=== PATIENT | male | born 1985 | race Caucasian/White ===

== ENCOUNTER 2018-01-05 21:11 | Emergency (ER) | payer MEDICAID, SELFPAY ==
[2018-01-05 21:12] VITALS: BP 114/71; PULSE 82; RESP 16; TEMP 37.1; O2SAT 96; BMI 21.4
--- NOTE | 2018-01-05 22:15 | RAD_ITS ---
STUDY: X-RAY - RIGHT SHOULDER REASON FOR EXAM: Male, 32 years old. Patient fell down stairs this morning. TECHNIQUE: 4 view(s) of the shoulder. COMPARISON: None. FINDINGS: Normal glenohumeral articulation. Normal acromioclavicular joint. Normal acromion. Normal humeral head and visualized proximal humerus. The soft tissue structures are unremarkable. Normal visualized pulmonary apex. RAD/Shoulder min 2 Views IMPRESSION: Normal x-ray examination of the shoulder. Electronically Signed: Aidan Lopez MD at 23:09 EDT Tel , Service support ,
--- NOTE | 2018-01-05 22:15 | RAD_ITS ---
STUDY: X-RAY - CERVICAL SPINE REASON FOR EXAM: Male, 32 years old. Patient fell down stairs this morning. TECHNIQUE: 3 view(s) of the cervical spine were obtained. COMPARISON: None FINDINGS: Normal anterior atlantoaxial articulation. Normal odontoid process. There is reversal of the normal cervical lordosis. Normal vertebral bodies and endplates. C7 vertebra is not well-seen on the lateral view. Normal disc space heights. Normal visualized intervertebral neuroforamina. There is mild prominence of the posterior nasopharynx. RAD/Cerv Spine 2 or 3 Views IMPRESSION: Reversal of the normal cervical lordosis which could be due to muscle spasm. C7 vertebra is not well-seen on the lateral view. No demonstrated acute fracture. If symptoms persist, CT scan or MRI of the cervical spine are recommended. Prominence of the posterior nasopharynx. Electronically Signed: Aidan Lopez MD at 23:13 EDT Tel , Service support ,
--- NOTE | 2018-01-05 22:15 | RAD_ITS ---
STUDY: X-RAY - THORACIC SPINE REASON FOR EXAM: Male, 32 years old. Patient fell down stairs this morning. TECHNIQUE: 3 view(s) of the thoracic spine were obtained. COMPARISON: None. FINDINGS: There is straightening of the normal thoracic kyphosis. There is mild levoscoliosis. Normal thoracic vertebrae and endplates. Normal disc space heights. The soft tissue structures are unremarkable. RAD/Thoracic Spine 3 Views IMPRESSION: Straightening of the thoracic spine and mild scoliosis which could be due to muscle spasm. No demonstrated acute fracture. Electronically Signed: Aidan Lopez MD at 23:12 EDT Tel , Service support ,
--- NOTE | 2018-01-05 22:15 | RAD_ITS ---
STUDY: X-RAY - LUMBAR SPINE REASON FOR EXAM: Male, 32 years old. Patient fell down stairs this morning. Pain. TECHNIQUE: 3 view(s) of the lumbar spine were obtained. COMPARISON: None FINDINGS: Normal lumbar lordosis. There is no substantial scoliosis. There is a normal alignment of the vertebrae. Normal vertebral bodies and endplates. Normal disc space heights. There is no demonstrated fracture. There is spina bifida at S1. The soft tissue structures are unremarkable. RAD/Lumbar Spine 2 or 3 Views IMPRESSION: No demonstrated acute osseous injury. Electronically Signed: Aidan Lopez MD at 23:09 EDT Tel , Service support ,
--- NOTE | 2018-01-05 22:18 | ED.VISSUMM ---
- ER Visit Summary Date of Service: 01/05/18 Chief Complaint: Back pain History of Present Illness: The patient is a 32 M presenting with back pain. Patient states he fell down a flight of steps this morning. He did not hit his head or lose consciousness. He states he has a history of degenerative disc disease. He complains of diffuse back pain. He tried ibuprofen at home with some relief. He was advised by his counselor to come to the ED for further evaluation. Physical Examination: Vitals are stable. Patient is afebrile. Alert no acute distress. HEENT exam is unremarkable. Neck is mild diffuse tenderness with no stepoff Lungs are clear and equal bilaterally. Heart is regular rate and rhythm. Abdomen is soft nontender nondistended. Back: diffuse tenderness Extremities right posterior shoulder tenderness, AFROM Skin is warm and dry. No focal neurologic deficit. Remainder of exam is unremarkable. Emergency Department Course and Treatment: Patient is given Toradol IM. X-ray of the right shoulder shows no acute process. X-ray of the thoracic and lumbar spine show no fracture. X-ray of the C-spine shows no obvious fracture, C7 is not well visualized. CT cervical spine was obtained and shows no fracture. Patient is given prescription for Naprosyn and Flexeril. He is advised to follow-up with his primary care physician. Advised return to ED if worsening complaints. Disposition: Discharge home Impression: Neck and back pain status post fall This note was generated with [employer] dictation software. It may contain incorrect words, spelling, and punctuation that were not noted in review of the chart prior to signing ED Disposition - Plan for ED Patient: Chief Complaint: Back Referrals: Lexy Aiken MD [Primary Care Provider] -
[2018-01-05] MEDS: Ketorolac 60 MG/2 ML Vial IM (22:44)
--- NOTE | 2018-01-06 00:43 | ED.DEP ---
ED Disposition - Plan for ED Patient: Chief Complaint: Back Instructions: ED Neck Back Pain General Prescriptions: Naproxen [Naprosyn] 500 mg PO BID PRN #20 tablet Cyclobenzaprine [Flexeril] 10 mg PO TID PRN #20 tablet PRN Reason: Muscle Spasm Referrals: Lexy Aiken MD [Primary Care Provider] -
--- NOTE | 2018-01-06 00:55 | NURSING ---
LET THE DOCTOR KNOW HE WAS STILL HAVING PAIN BUT NEVER MENTIONED ANYTHING TO THE DOCTOR WHEN SHE WENT TO TALK WITH HIM.
[2018-01-06 00:56] VITALS: RESP 18
--- NOTE | 2018-01-06 23:31 | CT_ITS ---
STUDY: CT CERVICAL SPINE WITHOUT CONTRAST REASON FOR EXAM: Male, 32 years old. Patient fell down stairs. Neck pain. RADIATION DOSAGE (If Supplied By Facility): CTDIvol = ( 21.53 ) mGy, DLP = ( 496.03 ) mGycm TECHNIQUE: High resolution transaxial imaging was performed without contrast material. Sagittal and coronal images were reconstructed. Individualized dose optimization techniques were used for this CT. COMPARISON: None FINDINGS: Normal craniovertebral junction. Normal anterior atlantoaxial articulation. Normal odontoid process. There is straightening of the normal cervical lordosis. Normal vertebral bodies and posterior osseous elements. C2-3: Normal endplates. Normal disc height and morphology. Normal central canal and intervertebral neuroforamina. C3-4: Normal endplates. Normal disc height and morphology. Normal central canal and intervertebral neuroforamina. C4-5: Normal endplates. Normal disc height and morphology. Normal central canal and intervertebral neuroforamina. C5-6: Normal endplates. Normal disc height and morphology. Normal central canal and intervertebral neuroforamina. C6-7: Normal endplates. Normal disc height and morphology. Normal central canal and intervertebral neuroforamina. C7-T1: Normal endplates. Normal disc height and morphology. Normal central canal and intervertebral neuroforamina. There is no prevertebral soft tissue swelling. There is mild prominence of the visualized posterior nasopharynx. CT/Spine Cervical without Contras IMPRESSION: Straightening of the cervical spine which could be due to muscle spasm. No demonstrated acute fracture or subluxation. If symptoms persist, MRI of the cervical spine is recommended. Electronically Signed: Aidan Lopez MD at 0:39 EDT Tel , Service support ,
== END 2018-01-06 00:56 | disposition home or self-care (01) ==
LOC: ED 23:29
PROVIDERS: Emergency Provider Emergency Medicine; Family Provider Internal Medicine; PCP Internal Medicine
DX: M54.2 Cervicalgia (principal); M54.5 Low back pain; M54.6 Pain in thoracic spine; G89.29 Other chronic pain; Z72.0 Tobacco use; W10.9XXA Fall (on) (from) unspecified stairs and steps, initial encounter; Y93.89 Activity, other specified; Y92.89 Other specified places as the place of occurrence of the external cause; Y99.8 Other external cause status
CPT/HCPCS: 72040; 72072; 72100; 72125; 73030; 96372; 99282

== ENCOUNTER 2018-05-07 19:05 | Emergency (ER) | payer MEDICAID, SELFPAY ==
[2018-05-07 19:07] VITALS: BP 118/74; PULSE 88; RESP 16; TEMP 36.8; O2SAT 98; BMI 23.0
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
--- NOTE | 2018-05-07 19:29 | ED.DEP ---
ED Disposition - Plan for ED Patient: Disposition: Home or Assisted Living Chief Complaint: Dental Instructions: ED Staph Infec Abx Tx Only Prescriptions: Naproxen [Naprosyn] 500 mg PO BID PRN PRN #20 tablet PRN Reason: Pain Clindamycin [Cleocin] 300 mg PO 4X/DAY #80 capsule Referrals: Lexy Aiken MD [Primary Care Provider] -
[2018-05-07] MEDS: Clindamycin HCl 150 MG Capsule 300 MG PO (19:39)
[2018-05-07] MEDS: Naproxen 500 MG Tablet PO (19:39)
--- NOTE | 2018-05-07 19:40 | ED.RN ---
pt given written and verbal d/c instructions and home going prescriptions. pt educated to rinse mouth and not to swallow the drainage. educated to take antibiotics until it is completed. pt verbalizes understanding. ambulates out of ed by self.
== END 2018-05-07 19:42 | disposition home or self-care (01) ==
PROVIDERS: Emergency Provider Emergency Medicine; Family Provider Internal Medicine; PCP Internal Medicine
DX: K13.0 Diseases of lips (principal); R56.9 Unspecified convulsions; F31.9 Bipolar disorder, unspecified; F20.9 Schizophrenia, unspecified; Z72.0 Tobacco use
CPT/HCPCS: 99283

== ENCOUNTER 2018-11-28 15:40 | Emergency (ER) | payer MEDICAID, SELFPAY ==
[2018-11-28 15:42] VITALS: BP 132/74; PULSE 88; RESP 14; TEMP 36.4; O2SAT 96; BMI 19.6
--- NOTE | 2018-11-28 16:09 | ED.DCSUM_ITS ---
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 but nothing recent no fever no cough Physical Examination: [] Vital signs are within normal range afebrile General, no distress resting comfortably HEENT is generally unremarkable The neck is supple no adenopathy Cardiovascular, regular rate and rhythm Lungs, clear bilateral Abdomen, soft nontender Extremities, no clubbing cyanosis or edema, to the left buttock crease region extending around to the anal region he has about a 3 cm area of fullness that appears slightly fluctuant and is slightly tender, there is no other surrounding erythema, there is no signs of foreign years gangrene this is a very discrete localized area his testicular exam and exam unremarkable the abdominal gas exam is as above soft and nontender his backs unremarkable and extremities are normal Neurologic, awake alert answering questions appropriately moving all 4 extremities Test Results: [] Emergency Department Course and Treatment: [] Discussed treatment he agreed to I&D he has no immunocompromising, to provide him some sedation and comfort he was given morphine IM IM Versed 2 mg placed on nonrebreather mask sedation protocol followed, the area was cleansed sterilely local lidocaine and then 11 blade was used to open the most fluctuant area with production of some thick yellow fluid loculations broken down the area was irrigated, and then antibiotic sterile dressing applied, he tolerated procedure well awake and alert during the whole episode reporting almost no pain with all the above Explained all the above to him the concept of an infection below the waistthat could be he will be started on Bactrim DS Naprosyn [place] he will use warm soapy soaks twice a day when he is referred to Dr. Devine and on-call for surgery he will return for change in symptoms Treatment Plan: [] Disposition: [] Home stable Impression: [] 3 cm medial left buttock abscess status post I&D This note was generated with [employer] software. It may contain incorrect words, spelling, and punctuation that were not noted in review of the chart prior to signing ED Disposition - Plan for ED Patient: Referrals: Lexy Aiken MD [Primary Care Provider] -
[2018-11-28] MEDS: morphine 10 MG/ML Syringe SC (16:58)
[2018-11-28] MEDS: Midazolam 5 MG/2.5 ML PO.SYRINGE 2 MG PO (16:58)
--- NOTE | 2018-11-28 17:24 | ED.DEP ---
ED Disposition - Plan for ED Patient: Instructions: ED Sol Anal Abscess IandD Prescriptions: Hydrocodone Bitart/Apap 5-325 [[place] 5MG-325MG] 1 tab PO Q4H PRN PRN 2 Days #7 tab PRN Reason: Pain Naproxen [Naprosyn] 500 mg PO BID PRN #20 tab Smz/Tmp Ds [Bactrim Ds] 1 tab PO BID #14 tab Referrals: Lexy Aiken MD [Primary Care Provider] - Johnna Hyde MD [STAFF PHYSICIAN] -
--- NOTE | 2018-11-28 18:21 | ED.RN ---
CALLED PHARMACY FOR ROCEPHINE
[2018-11-28] MEDS: Smz/Tmp Ds Tablet 1 TABLET PO (18:37)
[2018-11-28] MEDS: Ceftriaxone 1 GM Vial IM (18:37)
[2018-11-28 18:40] VITALS: BP 131/76; PULSE 83; RESP 14; O2SAT 97
== END 2018-11-28 18:41 | disposition home or self-care (01) ==
PROVIDERS: Emergency Provider Emergency Medicine; Family Provider Internal Medicine; PCP Internal Medicine
DX: L02.31 Cutaneous abscess of buttock (principal)
CPT/HCPCS: 10060; 96372; 99283

== ENCOUNTER 2020-01-23 10:20 | Emergency (ER) | payer MEDICAID, SELFPAY ==
[2020-01-23 10:21] VITALS: BP 125/80; PULSE 75; TEMP 36.7; O2SAT 95; BMI 21.1
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
--- NOTE | 2020-01-23 10:30 | EKG12_ITS ---
Test Reason : CP Blood Pressure : / mmHG Vent. Rate : 068 BPM Atrial Rate : 068 BPM P-R Int : 156 ms QRS Dur : 090 ms QT Int : 370 ms P-R-T Axes : 073 058 053 degrees QTc Int : 393 ms Normal sinus rhythm Normal ECG Confirmed by NIKKY WARNER, REENA ([id number]), editorial specialist ALEXANDRA POLANCO ([id number]) on 01/28/2020 2:13:40 PM Referred By: STEPH/LUCRETIA Confirmed By:REENA SHER MD
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
--- NOTE | 2020-01-23 10:31 | ED.RN ---
pt straight back to room. cp
--- NOTE | 2020-01-23 10:41 | ED.RN ---
pt asked in triage if he wanted to file workmans comp. pt refused
[2020-01-23] MEDS: Ipratropium/Albuterol Sulfate 3 ML AMPUL.NEB INHALATION (11:11)
[2020-01-23 11:14] VITALS: PULSE 71; RESP 16
[2020-01-23 11:34] VITALS: BP 114/78; PULSE 79; RESP 18; O2SAT 98
== END 2020-01-23 11:38 | disposition home or self-care (01) ==
PROVIDERS: Emergency Provider Emergency Medicine; PCP Internal Medicine
DX: R07.1 Chest pain on breathing (principal); R06.00 Dyspnea, unspecified; Z77.098 Contact with and (suspected) exposure to other hazardous, chiefly nonmedicinal, chemicals; F17.290 Nicotine dependence, other tobacco product, uncomplicated
CPT/HCPCS: 71046; 93005; 94640; 99283

== ENCOUNTER 2020-06-13 16:33 | Emergency (ER) | payer MEDICAID, SELFPAY ==
[2020-06-13 16:36] VITALS: BP 136/76; PULSE 91; RESP 18; TEMP 36.2; O2SAT 98; BMI 23.1
--- NOTE | 2020-06-13 16:50 | EKG12_ITS ---
Test Reason : SOB Blood Pressure : / mmHG Vent. Rate : 067 BPM Atrial Rate : 067 BPM P-R Int : 158 ms QRS Dur : 094 ms QT Int : 358 ms P-R-T Axes : 074 053 053 degrees QTc Int : 378 ms Normal sinus rhythm Normal ECG Confirmed by SCOTT WARNER, TONE ([id number]), assistant editor KALPESH ROBBINS ([id number]) on 06/16/2020 1:49:56 PM Referred By: DEWAYNE Confirmed By:TONE CHAVEZ MD
--- NOTE | 2020-06-13 16:54 | ED.VISSUMM ---
- ER Visit Summary Date of Service: 06/13/20 Chief Complaint: Wants COVID test History of Present Illness: The patient is a 35 M presenting requesting a COVID test. Patient states that he was exposed to someone who tested positive for COVID at work. Over the past 1 week he has had fever up to 100.4, chills, myalgias. He has lost his sense of smell. He denies cough. Denies diarrhea. He has a mild headache. He complains of chest pain with deep inspiration. No PE/DVT risk factors. He has been taking ibuprofen at home. Denies other complaints. Physical Examination: Vitals are stable. Patient is afebrile. Alert no acute distress. Pulse ox 98% on room air HEENT exam is unremarkable. Neck is supple. Lungs are clear and equal bilaterally. Heart is regular rate and rhythm. Abdomen is soft nontender nondistended. Extremities are unremarkable. Skin is warm and dry. No focal neurologic deficit. Remainder of exam is unremarkable. Emergency Department Course and Treatment: EKG is sinus rhythm rate of 67 with no acute ischemic changes. Troponin is negative. D-dimer negative. COVID is pending. Patient is advised to continue social distancing. Advised follow-up for his COVID results. Advised return to ED for worsening complaints. Disposition: Discharge home Impression: Viral illness This note was generated with [employer] dictation software. It may contain incorrect words, spelling, and punctuation that were not noted in review of the chart prior to signing ED Disposition - Plan for ED Patient: Instructions: ED Upper Resp Infec No Abx Tx Referrals: Lexy Aiken MD [Primary Care Provider] -
--- NOTE | 2020-06-13 17:10 | RAD_ITS ---
STUDY: X-RAY CHEST REASON FOR EXAM: Male, 35 years old. SOB CHEST PAIN TECHNIQUE: Single AP portable view of the chest. COMPARISON: 01/23/2020 FINDINGS: The lungs are clear and expanded. There is no demonstrated pleural abnormality. Normal size heart. Normal mediastinum and divine. Normal visualized pulmonary arteries. Normal visualized aortic arch and descending thoracic aorta. Normal visualized thoracic spine. Normal visualized ribs, clavicles, and shoulders. There is no demonstrated abnormality of the visualized soft tissue structures of the upper abdomen. RAD/Chest 1 View (Portable) IMPRESSION: Normal x-ray examination of the chest. Electronically Signed: David Wasserman MD at 17:35 EDT Tel , Service support ,
[2020-06-13 17:38] LABS: D-Dimer Quantitative (DVT/PE) < 0.27 FEU/ug/m (0.27-0.49)
[2020-06-13 18:41] VITALS: BP 116/80; PULSE 77; RESP 18; O2SAT 97
--- NOTE | 2020-06-13 19:31 | ED.DEP ---
ED Disposition - Plan for ED Patient: Instructions: ED Upper Resp Infec No Abx Tx Referrals: Lexy Aiken MD [Primary Care Provider] -
[2020-06-13 19:45] VITALS: PULSE 75; RESP 18; O2SAT 97
== END 2020-06-13 19:46 | disposition home or self-care (01) ==
LOC: ED 18:22
PROVIDERS: Emergency Provider Emergency Medicine; PCP Internal Medicine
DX: B34.9 Viral infection, unspecified (principal); R07.1 Chest pain on breathing; Z20.828 Contact with and (suspected) exposure to other viral communicable diseases; Z72.0 Tobacco use
CPT/HCPCS: 71045; 84484; 85379; 87635; 93005; 99284; C9803; A4216; U0003

== ENCOUNTER 2020-08-28 12:33 | Emergency (ER) | payer MEDICAID, SELFPAY ==
[2020-08-28 12:35] VITALS: BP 131/83; PULSE 90; RESP 16; TEMP 36.7; O2SAT 97; BMI 21.7
--- NOTE | 2020-08-28 12:59 | ED.VIS.GEN ---
History of Present Illness Chief Complaint: General Illness Narrative: This patient is a 35-year-old male who had a positive Covid exposure at work. One of his coworkers tested positive last week. The next day which was 8 days ago he developed a generalized malaise. He states he just does not feel well. He feels like his body is shutting down. He does complain of some congestion. No fevers. No cough. No shortness of breath. No vomiting. He complains of loose stools but no joie diarrhea. Past Medical History - Allergies and Home Meds Allergies/Adverse Reactions: Allergies No Known Allergies Allergy (Verified 08/28/20 12:37) Primary Care Physician: Lexy Aiken MD [Primary Care Provider] - Past Medical History: None Smoking Status: Current every day smoker Review of Systems All systems negative except as indicated General: Reports: Chills. Denies: Fever ENT: Reports: - - Ingestion. Denies: Rhinorrhea, Sore throat Cardiovascular: Denies: Chest pain Respiratory: Denies: Dyspnea, Cough Gastrointestinal: Reports: Nausea. Denies: Abdominal pain, Vomiting, Diarrhea Musculoskeletal: Denies: Myalgias, Arthralgias Skin: Denies: Rash Neurological: Denies: Headache Physical Exam Vital Signs/Narrative: Vital Signs Temp Pulse Resp BP Pulse Ox 08/28/20 12:35 98.1 F 90 16 131/83 H 97 Inital Vital Signs reviewed: Yes General: Well nourished Head: Normocephalic Eyes: EOMI ENT: Moist mucous membranes Neck: Supple Cardiovascular: Regular rate, Regular rhythm Respiratory: No distress, CTA bilaterally Abdomen: Soft Skin: Normal color Neurological: Alert Psychological: Normal affect Diagnostic/Tx/Re-eval - Medical Decision Making Patient had a positive Covid exposure and is symptomatic. He was advised of the risk of a false negative test and was advised to quarantine. Patient discharged. A Covid test was sent but is currently pending. ED Disposition - Plan for ED Patient: Disposition: Home or Assisted Living Diagnosis: Exposure to COVID-19 virus Instructions: Coronavirus Disease 2019 (COVID-19): Overview, ED Viral Syndrome (Adult) Referrals: Lexy Aiken MD [Primary Care Provider] -
== END 2020-08-28 13:24 | disposition home or self-care (01) ==
LOC: ED 13:07
PROVIDERS: Emergency Provider Emergency Medicine; PCP Internal Medicine
DX: Z20.828 Contact with and (suspected) exposure to other viral communicable diseases (principal); F17.200 Nicotine dependence, unspecified, uncomplicated
CPT/HCPCS: 87426; 99282

== ENCOUNTER 2021-01-08 14:35 | Outpatient (RCR) | payer MEDICAID, SELFPAY | END 2021-03-03 23:59 | LOC: IMMUN 14:35 | PROVIDERS: PCP Internal Medicine; Visit Provider Family Medicine | DX: Z23 Encounter for immunization (principal) | CPT/HCPCS: 0001A; 0002A; 91300 ==

== ENCOUNTER → 2022-08-13 | Outpatient (CLI) | payer MEDICAID, SELFPAY | END | disposition home or self-care (01) | LOC: SL 20:16 | PROVIDERS: PCP Internal Medicine; Visit Provider Internal Medicine | DX: G47.30 Sleep apnea, unspecified (principal) | CPT/HCPCS: 95811 ==

== ENCOUNTER → 2022-10-05 | Outpatient (CLI) | payer MEDICAID, SELFPAY | END | disposition home or self-care (01) | LOC: SL 07:19 | PROVIDERS: PCP Internal Medicine; Visit Provider Internal Medicine | DX: Z00.00 Encounter for general adult medical examination without abnormal findings (principal) ==

== ENCOUNTER 2022-12-15 16:31 | Emergency (ER) | payer MEDICAID, SELFPAY ==
[2022-12-15 16:33] VITALS: BP 143/88; PULSE 89; RESP 18; TEMP 36.6; O2SAT 97
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
--- NOTE | 2022-12-15 18:13 | ED.RN ---
PT LWBS [id number]
== END 2022-12-15 18:15 | disposition left against medical advice (07) ==
LOC: ED 18:15
PROVIDERS: PCP Internal Medicine
DX: Z53.21 Procedure and treatment not carried out due to patient leaving prior to being seen by health care provider (principal)
CPT/HCPCS: 71045; 93005

== ENCOUNTER 2023-03-01 21:41 | Emergency (ER) | payer MEDICAID, SELFPAY ==
[2023-03-01 21:43] VITALS: BP 126/77; PULSE 112; RESP 15; TEMP 37.1; O2SAT 93; BMI 21.4
[2023-03-02 00:47] LABS: Absolute Lymphocyte Count 2.24 X10^3/uL (0.83-4.51); Absolute Neutrophil Count 5.9 X10^3/uL (2.0-7.7); Basophil# 0.08 X10^3/uL; Basophil% 0.9 % (0-1); Eosinophil# 0.17 X10^3/uL; Eosinophils% 1.8 % (0-5); Hematocrit 47.4 % (40-54); Lymphocyte # 2.24 X10^3/ul (0.83-4.51); Lymphocyte % 24.1 % (19-41); Mean Corp Hgb Conc 33.8 g/dL (32-36); Mean Corpuscular Hgb 30.8 pg (27.0-32.0); Mean Corpuscular Volume 91.3 fL (80-94); Mean Platelet Vol. 9.1 fl (6.2-12.0); Monocyte% 9.7 % (0-10); NRBC Flagged by Analyzer 0 % (0-5); Neutrophil # 5.85 X10^3/uL (2.7-7.7); Platelet Count 300 K/mm3 (150-450); RBC Distribution Width CV 12.9 % (11.6-14.6); RBC Distribution Width SD 43.7 fl (35.1-43.9); Red Blood Count 5.19 M/mm3 (4.6-6.2); White Blood Count 9.3 K/mm3 (4.4-11.0)
[2023-03-02 01:00] LABS: Anion Gap 8 (5-15); BUN 13 mg/dL (7-18); BUN/Creat Ratio 15.5 RATIO (10-20); Chloride 107 mmol/L (98-107); Creatinine, Serum 0.84 mg/dL (0.70-1.30); EST Glomerular Filtration Rate 108 mL/min (>60); Est Glom Filt Rate - Afr Amer 131 mL/min (>60); Glucose 94 mg/dL (74-106); Potassium 3.8 mmol/L (3.5-5.1); Sodium Level 139 mmol/L (136-145)
[2023-03-02 01:03] LABS: Amphetamine Urine VISTA NEGATIVE (<1000 ng/mL); Barbiturate Urine VISTA NEGATIVE (< 200 ng/mL); Benzodiazepine Urine VISTA NEGATIVE (< 200 ng/mL); Cocaine Urine VISTA NEGATIVE (< 300 ng/mL); Ecstacy Urine VISTA NEGATIVE (< 500 ng/mL); Methadone Urine VISTA NEGATIVE (< 300 ng/mL); PCP Urine VISTA NEGATIVE (< 25 ng/mL); THC Urine VISTA POSITIVE (< 50 ng/mL); Vista UDS pH Range 4
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
[2023-03-02] MEDS: Ketorolac 15 MG/ML Vial IV (01:58)
[2023-03-02] MEDS: LORazepam 2 MG/ML Syringe 0.5 MG IV (01:58)
[2023-03-02] MEDS: Ondansetron 4 MG/2 ML Vial IV (01:59)
--- NOTE | 2023-03-02 01:59 | ED.RN ---
Medications unable to be scanned due to scanner gun not working properly. Medications verified and wasted with Hernan RN before administration.
[2023-03-02 02:00] LABS: Lipase 45 U/L (13-75)
[2023-03-02 03:56] VITALS: BP 114/76; PULSE 90; RESP 17; O2SAT 96
--- NOTE | 2023-03-02 04:00 | CT_ITS ---
EXAM: CT brain without contrast HISTORY: headache TECHNIQUE: No intravenous contrast. A radiation dose optimization technique was used for this scan. COMPARISON: None. LIMITATIONS: None. BRAIN: Normal berman/white matter differentiation. VENTRICLES: No hydrocephalus. EXTRA-AXIAL SPACES: No acute hemorrhage. CALVARIUM/SKULL BASE: No acute fracture. FACE/SINUSES: Old right-sided facial bone fractures are suspected. Mild mucosal thickening of the sphenoid and bilateral maxillary sinuses. Mild mucosal thickening and/or fluid in the ethmoid air cells bilaterally. SOFT TISSUES: Normal. OTHER: None. CONCLUSION: No acute intracranial abnormality. Mild paranasal sinus disease. Electronically Signed: Carlos A Knight MD at 4:43 EDT , CT/Brain/Head without Contrast IMPRESSION: undefined
--- NOTE | 2023-03-02 04:26 | ED.RN ---
Report given to Clinton ANAYA at [facility].
[2023-03-02] MEDS: Morphine 4 MG/ML Syringe IV (04:32)
[2023-03-02 05:07] VITALS: BP 122/86; PULSE 64; RESP 17; O2SAT 100
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
[2023-03-02 06:29] VITALS: BP 121/74; PULSE 71; RESP 16; O2SAT 98
== END 2023-03-02 06:32 | disposition short-term general hospital (02) ==
PROVIDERS: Emergency Provider Emergency Medicine; PCP Internal Medicine; Visit Provider Emergency Medicine
DX: S12.8XXA Fracture of other parts of neck, initial encounter (principal); R45.851 Suicidal ideations; F17.210 Nicotine dependence, cigarettes, uncomplicated; R45.850 Homicidal ideations; F41.9 Anxiety disorder, unspecified; F32.A Depression, unspecified; R51.9 Headache, unspecified; Y04.8XXA Assault by other bodily force, initial encounter
CPT/HCPCS: 36415; 70450; 70498; 80048; 80307; 82077; 83690; 85025; 87811; 96374; 96375; 99285; Q9967; A4216; J2405

== ENCOUNTER 2023-06-23 18:55 | Emergency (ER) | payer MEDICAID, SELFPAY ==
[2023-06-23 18:59] VITALS: BP 130/87; PULSE 92; RESP 18; TEMP 36.4; O2SAT 97
--- NOTE | 2023-06-23 19:51 | CT_ITS ---
INDICATION: Abdominal pain EXAMINATION: CT Abdomen And Pelvis W/ Contrast Injection TECHNIQUE: Helically acquired images were obtained of the abdomen and pelvis with sagittal and coronal reconstructed images. Individualized dose optimization techniques were used for this CT. IV contrast dosage and agent: 100 mL of Isovue-370. Oral contrast: Contrast is seen in the distal small bowel and proximal colon. COMPARISON: None. FINDINGS: VESSELS: No abdominal aortic aneurysm or dissection. Circumaortic left renal vein. LIVER: Right lobe hepatic cyst. No intrahepatic or extrahepatic biliary duct dilation. GALLBLADDER: No calcified stones. No evidence of cholecystitis. PANCREAS: No focal solid or cystic mass. No evidence of pancreatitis. SPLEEN: Normal. ADRENAL GLANDS: Normal. KIDNEYS AND URETERS: Bilateral simple cysts with no follow-up recommended. No urinary tract stone. No hydronephrosis or hydroureter. No significant asymmetric perinephric stranding. URINARY BLADDER: Unremarkable. BOWEL: Thickened proximal small bowel. No significant mesenteric stranding. No evidence of diverticulosis or diverticulitis. Appendix appears normal. No evidence of bowel obstruction. REPRODUCTIVE ORGANS: No evidence of a pelvic mass. PERITONEUM: No intraabdominal free fluid or free air. LYMPH NODES: No pathologically enlarged mesenteric or retroperitoneal lymph nodes. ABDOMINAL WALL: No abdominal or pelvic wall hernia. BONES: No acute abnormality. LOWER CHEST: 4 mm left lower lobe pulmonary nodule. CT/Abdomen/Pelvis WITH Contrast IMPRESSION: 1. Thickening of proximal small bowel which may represent enteritis. 2. No other evidence of an acute intra-abdominal abnormality. 3. 4 mm left lower lobe pulmonary nodule. Fleischner criteria recommends follow-up with CT in 12 months if the patient has increased risk factors for lung cancer. Otherwise no follow-up is recommended. Electronically Signed: Daniel Freitas DO at 22:23 EDT ,
[2023-06-23] MEDS: 0.9% Normal Saline (1000mL) 1,000 ML 1000 ML IV (20:00)
[2023-06-23] MEDS: Ondansetron 4 MG/2 ML Vial IV (20:00)
[2023-06-23 20:04] LABS: Absolute Lymphocyte Count 2.62 X10^3/uL (0.83-4.51); Absolute Neutrophil Count 7.1 X10^3/uL (2.0-7.7); Basophil# 0.07 X10^3/uL; Basophil% 0.6 % (0-1); Eosinophil# 0.31 X10^3/uL; Eosinophils% 2.9 % (0-5); Hematocrit 49.4 % (40-54); Hemoglobin 16.4 g/dL (13.0-16.5); Lymphocyte # 2.62 X10^3/ul (0.83-4.51); Lymphocyte % 24.2 % (19-41); Mean Corp Hgb Conc 33.2 g/dL (32-36); Mean Corpuscular Hgb 30.3 pg (27.0-32.0); Mean Corpuscular Volume 91.1 fL (80-94); Monocyte# 0.75 X10^3/uL; Monocyte% 6.9 % (0-10); NRBC Flagged by Analyzer 0 % (0-5); Neutrophil # 7.05 X10^3/uL (2.7-7.7); Neutrophil % 65.1 % (47-70); Platelet Count 287 K/mm3 (150-450); RBC Distribution Width CV 12.8 % (11.6-14.6); RBC Distribution Width SD 42.7 fl (35.1-43.9); Red Blood Count 5.42 M/mm3 (4.6-6.2); White Blood Count 10.8 K/mm3 (4.4-11.0)
[2023-06-23 20:20] LABS: AST(SGOT) 10 U/L (15-37); Alanine Aminotransfer ALT/SGPT 16 U/L (16-61); Albumin, Serum 4.1 g/dL (3.2-5.0); Alkaline Phosphatase 89 U/L (45-117); Anion Gap 5 (5-15); BUN 10 mg/dL (7-18); BUN/Creat Ratio 9.3 RATIO (10-20); Calcium,Total 9.5 mg/dL (8.5-10.1); Chloride 106 mmol/L (98-107); Creatinine, Serum 1.07 mg/dL (0.70-1.30); EST Glomerular Filtration Rate 81 mL/min (>60); Est Glom Filt Rate - Afr Amer 98 mL/min (>60); Globulin 4.1 g/dL (2.2-4.2); Glucose 91 mg/dL (74-106); Lipase 45 U/L (13-75); Potassium 3.6 mmol/L (3.5-5.1); Protein, Total 8.2 g/dL (6.4-8.2); Sodium Level 138 mmol/L (136-145)
--- NOTE | 2023-06-23 20:36 | EDS_ITS ---
HPI HPI - GI History of Present Illness Chief Complaint: Abd Pain Informant: patient Abdominal Pain/Flank Pain Onset: Weeks (1) Context: Sudden Onset Timing: Continuous Quality: Aching, Burning and Stabbing Location: Epigastric, RUQ and LUQ Worsened by: Nothing Relieved by: Nothing Nausea/Vomiting/Emesis GI Symptom: Positive for Nausea and Vomiting Quality: Positive for Nonbilious; Negative for Blood streaks, Coffee ground or Hematemesis Diarrhea/Melena/Hematochezia GI Symptom: Positive for Hematochezia; Negative for Diarrhea or Melena Associated Symptoms Associated Symptoms: Negative for Dysuria, Frequency or Hematuria Narrative Narrative: Patient presents with abdominal pain that has been getting worse over the past week. Patient describes his pain as aching, burning, and stabbing. Patient states his pain is over the upper abdomen. Patient states it has been constant for the past week. Patient states nothing makes it better and nothing makes it worse. Patient states that today he noted some bright red blood per rectum. Patient admits to some nausea and vomiting. Patient denies any hematemesis or coffee-ground emesis. Patient admits to some urinary frequency. Patient admits to some chronic back pain. Patient also admits to a headache. Patient denies any fevers or chills. [facility] Medical History (Updated 06/23/23 @ 22:[address] Jordan Skinner DO) Abdominal pain Sleep apnea Home Medications NK 08/28/20 [History Last Taken Unknown] Allergy/AdvReac Type Severity Reaction Status Date / Time No Known Allergies Allergy Verified 06/23/23 18:58 Surgical History (Updated 06/23/23 @ 20:[address] Jordan Skinner DO) Hx of facial fracture repair Social History (Updated 06/23/23 @ 20:[address] Jordan Skinner DO) Smoking Status: Current every day smoker tobacco type: cigarettes alcohol intake: current alcohol intake frequency: a few times a month substance use type: marijuana ROS ROS ED Constitutional Constitutional ED: Denies chills or fever(s) Eyes Eyes: Denies blurry vision or change in vision ENT ENT ED: Denies rhinorrhea or sore throat Cardiovascular Cardiovascular: Reports chest pain; Denies palpitations Respiratory/Chest Respiratory/Chest: Denies cough or dyspnea Gastrointestinal Gastrointestinal: Reports abdominal pain, nausea and vomiting Genitourinary Genitourinary ED: Reports urinary frequency; Denies dysuria or hematuria Musculoskeletal Musculoskeletal: Reports back pain; Denies neck pain Integumentary Denies abscess or rash Neurologic Neurologic: Reports headache(s); Denies weakness Allergic/Immunologic Allergic/Immunologic ED: Denies mouth swelling or urticaria EXAM Physical Exam Const Vital Signs: 06/23/23 18:59 Temperature 97.5 F L Temperature Source Temporal Pulse Rate 92 Respiratory Rate 18 Blood Pressure 130/87 H Blood Pressure Mean 101 Pulse Ox 97 Oxygen Delivery Method Room Air Positive well nourished and well developed General Appearance ED: well developed HEENT Reports moist mucous membranes Neck supple and no JVD Resp normal respiratory effort and clear to auscultation bilaterally Cardio regular rate and regular rhythm GI normal to inspection, nondistended, normoactive bowel sounds GI Narrative: Rectal exam showed good sphincter tone. There is brown stool. There are no masses palpated. Palpation: soft and tender epigastric, LUQ and RUQ; Negative for guarding or rebound tenderness present Extremity normal to inspection General Extremety ED: Negative for edema or tenderness General Extremity: Negative for edema Neuro oriented x3, CN's II-XII intact bilaterally and no sensory deficits noted Sensorium / Orientation: alert Motor Exam: strength 5/5 throughout Psych mental status grossly normal Skin no rashes or lesions noted MDM MDM MDM Narrative Medical decision making narrative: Differential diagnosis includes gastric ulcer, GERD, duodenal ulcer, cholecystitis, cholelithiasis, pancreatitis, pyelonephritis, gastroenteritis, bowel obstruction, perforation, coagulopathy, and urinary tract infection. CBC will be obtained to assess for leukocytosis and anemia. Comprehensive metabolic profile will be obtained to assess for hepatic function, renal function, and electrolyte abnormality. Lipase will be obtained to assess for pancreatitis. Urinalysis will be obtained to assess for urinary tract infection. CT scan of the abdomen and pelvis will be obtained to assess for bowel obstruction and perforation. Stool for occult blood will be obtained to assess for rectal bleeding. Lab Data Attestation: I reviewed the patient's lab results. Lab results narrative: CBC was reviewed and was within normal limits. Comprehensive metabolic profile was reviewed and was within normal limits. Lipase was reviewed and was normal. Urinalysis was reviewed. There is no evidence of urinary tract infection or hematuria. Stool for occult blood was reviewed and was positive. Labs: Laboratory Results - last 24 hr 06/23/23 06/23/23 19:30 20:34 WBC 10.8 RBC 5.42 Hgb 16.4 Hct 49.4 MCV 91.1 MCH 30.3 MCHC 33.2 RDW Std Deviation 42.7 RDW Coeff of Yeison 12.8 Plt Count 287 MPV 10.0 Immature Gran % (Auto) 0.300 Neut % (Auto) 65.1 Lymph % (Auto) 24.2 [place] % (Auto) 6.9 Eos % (Auto) 2.9 Baso % (Auto) 0.6 Absolute Neuts (auto) 7.1 Absolute Lymphs (auto) 2.62 Nucleated RBC % 0 Sodium 138 Potassium 3.6 Chloride 106 Carbon Dioxide 27.0 Anion Gap 5 BUN 10 Creatinine 1.07 Est GFR (MDRD) Af Amer 98 Est GFR (MDRD) Non-Af 81 BUN/Creatinine Ratio 9.3 L Glucose 91 Calcium 9.5 Total Bilirubin 0.30 AST 10 L ALT 16 Alkaline Phosphatase 89 Total Protein 8.2 Albumin 4.1 Globulin 4.1 Albumin/Globulin Ratio 1.0 Lipase 45 Urine Color Yellow Urine Clarity Clear Urine pH 6.0 Ur Specific [place] 1.025 Urine Protein 15 H Urine Glucose (UA) Normal Urine Ketones 5 H Urine Occult Blood 10 H Urine Nitrite Negative Urine Bilirubin Negative Urine Urobilinogen 1 H Ur Leukocyte Esterase Negative Urine RBC 0-5 SEEN Urine WBC 0 SEEN Ur Squamous Epith Cells 0 SEEN Urine Bacteria 0 SEEN Urine Mucus 1+ Radiography Diagnostic Testing: Clinical Impression(s) from Imaging Studies Abdomen/Pelvis CT 06/23/23 19:51 IMPRESSION: 1. Thickening of proximal small bowel which may represent enteritis. 2. No other evidence of an acute intra-abdominal abnormality. 3. 4 mm left lower lobe pulmonary nodule. Fleischner criteria recommends follow-up with CT in 12 months if the patient has increased risk factors for lung cancer. Otherwise no follow-up is recommended. Electronically Signed: Daniel Freitas DO at 22:23 EDT , CT scan of the abdomen pelvis was obtained. There is some thickening of the proximal small bowel which may represent enteritis. There is no other acute abnormality noted. This was interpreted by the radiologist and was also independently reviewed by myself. Treatment and Re-Evaluation :: Patient was given IV fluids and Zofran. Patient was advised of his findings. Since the patient's hemoglobin and hematocrit are completely stable, I do not feel patient requires admission and further work-up for his gastrointestinal bleeding at this time. Patient was instructed to drink plenty of fluids. Patient was given a prescription for Zofran. Patient was instructed to follow- up with his primary care physician in 5 to 7 days. Patient was instructed return if worse in any way. Patient understood and was agreeable with plan. All questions were answered. Discharge Plan Triage Chief Complaint: Abd Pain Other Complaint: Headache ED Provider: Jordan Skinner Dx/Rx/DC Orders Clinical Impression: Rectal bleeding, Abdominal pain Instructions: ED Lower GI Bleeding (Stable), ED Abdominal Pain Unkn Cause Male... Prescriptions: No Action NK Primary Care Provider: Care Physician,No Primary Referrals: Ilan Brown MD [Med Staff - Store Administrative Assistant] - 5-7 Days Care Physician,No Primary [Primary Care Provider] - Disposition Disposition: Home, Self Care
[2023-06-23 20:44] LABS: Bacteria 0 SEEN /hpf (None Seen); Squamous Epithelial Cells - UA 0 SEEN /hpf (0-5); White Blood Cells 0 SEEN /hpf (0-5)
[2023-06-23 20:46] LABS: Color, Urine Yellow (Yellow); Glucose, Dipstick Normal (Normal); Ketone-Dipstick 5 mg/dl (Negative); Leukocyte Esterase-Dipstick Negative /ul (Negative); Nitrite-Dipstick Negative (Negative); Occult Blood-Urine 10 /ul (Negative); Protein-Dipstick 15 mg/dl (Negative); Specific Gravity, Urine 1.025 (1.002-1.030); Urine Bilirubin Dipstick Negative (Negative); Urine Clarity Clear (Clear); Urine Urobilinogen 1 mg/dl (Normal)
[2023-06-23 20:58] LABS: Mucous, Urine 1+ /hpf (<or=2+); Red Blood Cells-Urine 0-5 SEEN /hpf (0-5)
[2023-06-23 21:00] VITALS: RESP 18
== END 2023-06-23 23:02 | disposition home or self-care (01) ==
PROVIDERS: Emergency Provider Emergency Medicine; Visit Provider Emergency Medicine
DX: K62.5 Hemorrhage of anus and rectum (principal); R10.9 Unspecified abdominal pain; M54.9 Dorsalgia, unspecified; F17.210 Nicotine dependence, cigarettes, uncomplicated; G89.29 Other chronic pain; R11.2 Nausea with vomiting, unspecified; R35.0 Frequency of micturition; R07.9 Chest pain, unspecified; R51.9 Headache, unspecified
CPT/HCPCS: 74177; 80053; 81001; 82274; 83690; 85025; 96361; 96374; 99285; J7030; Q9967; A4216; J2405

== ENCOUNTER 2023-07-11 11:19 | Emergency (ER) | payer MEDICAID, SELFPAY ==
[2023-07-11 11:20] VITALS: BP 134/78; PULSE 64; RESP 14; TEMP 36.4; O2SAT 98; BMI 22.3
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
[2023-07-11 12:02] LABS: Absolute Lymphocyte Count 1.56 X10^3/uL (0.83-4.51); Absolute Neutrophil Count 6.5 X10^3/uL (2.0-7.7); Basophil# 0.07 X10^3/uL; Basophil% 0.8 % (0-1); Eosinophil# 0.05 X10^3/uL; Eosinophils% 0.6 % (0-5); Hematocrit 48.7 % (40-54); Hemoglobin 16.4 g/dL (13.0-16.5); Lymphocyte # 1.56 X10^3/ul (0.83-4.51); Lymphocyte % 17.9 % (19-41); Mean Corp Hgb Conc 33.7 g/dL (32-36); Mean Corpuscular Hgb 30.8 pg (27.0-32.0); Mean Corpuscular Volume 91.4 fL (80-94); Mean Platelet Vol. 9.6 fl (6.2-12.0); Monocyte# 0.48 X10^3/uL; Monocyte% 5.5 % (0-10); NRBC Flagged by Analyzer 0 % (0-5); Neutrophil # 6.54 X10^3/uL (2.7-7.7); Neutrophil % 74.9 % (47-70); Platelet Count 287 K/mm3 (150-450); RBC Distribution Width CV 12.7 % (11.6-14.6); RBC Distribution Width SD 43.2 fl (35.1-43.9); Red Blood Count 5.33 M/mm3 (4.6-6.2); White Blood Count 8.7 K/mm3 (4.4-11.0)
[2023-07-11 12:14] LABS: Anion Gap 6 (5-15); BUN 10 mg/dL (7-18); BUN/Creat Ratio 11.6 RATIO (10-20); Calcium,Total 9.2 mg/dL (8.5-10.1); Chloride 109 mmol/L (98-107); Creatinine, Serum 0.86 mg/dL (0.70-1.30); EST Glomerular Filtration Rate 104 mL/min (>60); Est Glom Filt Rate - Afr Amer 126 mL/min (>60); Estimated Creatinine Clearance 120.58 ml/min; Glucose 116 mg/dL (74-106); Potassium 3.7 mmol/L (3.5-5.1); Sodium Level 139 mmol/L (136-145)
[2023-07-11 12:15] LABS: Alcohol, Blood (Medical)-Serum < 3.0 mg/dL
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
[2023-07-11 12:58] LABS: Amphetamine Urine VISTA NEGATIVE (<1000 ng/mL); Barbiturate Urine VISTA NEGATIVE (< 200 ng/mL); Benzodiazepine Urine VISTA NEGATIVE (< 200 ng/mL); Cocaine Urine VISTA NEGATIVE (< 300 ng/mL); Ecstacy Urine VISTA NEGATIVE (< 500 ng/mL); Methadone Urine VISTA NEGATIVE (< 300 ng/mL); PCP Urine VISTA NEGATIVE (< 25 ng/mL); THC Urine VISTA POSITIVE (< 50 ng/mL); Vista UDS pH Range 5
--- NOTE | 2023-07-11 13:15 | CM.ED ---
Social Work SW contacted [facility] and [facility], beds available. SADE faxed referrals. Plan: Referrals pending at [facility] and [facility] Jenna DE JESUS, MIKHAIL
[2023-07-11 14:20] VITALS: BP 134/78; PULSE 64; RESP 14; TEMP 36.9; O2SAT 98
--- NOTE | 2023-07-11 15:23 | CM.ED ---
Social Work Patient has been accepted to [facility] by MD Colon, Discovery unit, N2N [phone]. Requesting pink slip be faxed as well as ETA during N2N. SW updated care team and faxed copy of pink slip to [facility]. SW met with patient and provided update regarding acceptance. Patient voiced understanding and has no questions. Plan: [facility] for inpatient psychiatric hospitalization Jenna Lorenzo MSW, MIKHAIL
--- NOTE | 2023-07-11 16:58 | NURSING ---
NICOL CALLED, ETA 90 MINUTES
[2023-07-11 18:00] VITALS: BP 146/78; PULSE 64; RESP 14; O2SAT 98
--- NOTE | 2023-07-11 18:52 | ED.RN ---
attempted to call report. transferred 3 times finally when speaking with a nurse. was told to call back
--- NOTE | 2023-07-11 19:07 | ED.RN ---
2nd attempt for report called no answer
== END 2023-07-11 19:10 ==
LOC: ED 12:00
PROVIDERS: Emergency Provider Emergency Medicine; Visit Provider Emergency Medicine
DX: R45.851 Suicidal ideations (principal); F20.9 Schizophrenia, unspecified; F31.9 Bipolar disorder, unspecified; R56.9 Unspecified convulsions; F17.210 Nicotine dependence, cigarettes, uncomplicated
CPT/HCPCS: 36415; 80048; 80307; 82077; 85025; 87811; 99285

== ENCOUNTER 2023-12-06 20:29 | Emergency (ER) | payer MEDICAID, SELFPAY ==
[2023-12-06 20:30] VITALS: BP 126/84; PULSE 89; RESP 16; TEMP 36.6; O2SAT 97; BMI 20.9
--- NOTE | 2023-12-06 21:09 | CT_ITS ---
INDICATION: Severe headache, problems with balance EXAMINATION: CT BRAIN - CT Head or Brain W/O Contrast Injection TECHNIQUE: Multiple axial images were obtained of the head without intravenous contrast. A radiation dose optimization technique was used for this scan. IV Contrast dosage and agent: None. RADIATION DOSAGE (If Supplied By Facility): CTDIvol = ( 44.99 ) mGy, DLP = ( 812.98 ) mGycm COMPARISON: No relevant prior comparison study available FINDINGS: BRAIN PARENCHYMA: No intra- or extra-axial hemorrhage. No evidence of acute infarct. No intracranial mass or mass effect. There is preservation of the berman/white matter interface. Posterior fossa structures are unremarkable. No parenchymal abnormality. CSF SPACES: No cerebral volume loss. No hydrocephalus. Basal cisterns are patent. CALVARIUM, SKULL BASE, PARANASAL SINUSES AND MASTOID AIR CELLS: Partially opacified bilateral ethmoid air cells. The mastoid air cells and visualized paranasal sinuses are otherwise well aerated. The calvarium is intact. No discrete lytic or blastic abnormalities. ORBITS: Both globes, extraocular muscles, optic nerves and retrobulbar fat appear unremarkable. CT/Brain/Head without Contrast IMPRESSION: No acute intracranial finding. Electronically Signed: Schuyler Grullon MD at 21:57 EDT ,
[2023-12-06] MEDS: Ondansetron 4 MG/2 ML Vial IV (21:32)
[2023-12-06] MEDS: 0.9% Normal Saline (1000mL) 1,000 ML 1000 ML IV (21:32)
--- NOTE | 2023-12-06 21:40 | RAD_ITS ---
INDICATION: Cough, EXAMINATION/TECHNIQUE: X-RAY - XR Chest 2 Views COMPARISON: No relevant prior comparison study available FINDINGS: LINES/DEVICES: None. LUNGS: The lungs are well expanded. No consolidation, edema or effusion. No pneumothorax. MEDIASTINUM AND CARDIOVASCULAR STRUCTURES: Cardiac silhouette not enlarged. Central airways and mediastinal contour are unremarkable. BONES AND SOFT TISSUES: No acute abnormality. RAD/Chest PA and Lateral IMPRESSION: No acute pulmonary finding. Electronically Signed: Schuyler Grullon MD at 21:58 EDT ,
[2023-12-06 21:43] LABS: Absolute Lymphocyte Count 2.52 X10^3/uL (0.83-4.51); Absolute Neutrophil Count 6.5 X10^3/uL (2.0-7.7); Basophil# 0.09 X10^3/uL; Basophil% 0.9 % (0-1); Eosinophil# 0.26 X10^3/uL; Eosinophils% 2.5 % (0-5); Hematocrit 45.7 % (40-54); Hemoglobin 15.1 g/dL (13.0-16.5); Lymphocyte # 2.52 X10^3/ul (0.83-4.51); Lymphocyte % 24.7 % (19-41); Mean Corpuscular Hgb 30.1 pg (27.0-32.0); Mean Corpuscular Volume 91.2 fL (80-94); Mean Platelet Vol. 9.6 fl (6.2-12.0); Monocyte# 0.82 X10^3/uL; NRBC Flagged by Analyzer 0 % (0-5); Neutrophil # 6.49 X10^3/uL (2.7-7.7); Neutrophil % 63.6 % (47-70); Platelet Count 244 K/mm3 (150-450); RBC Distribution Width CV 13.4 % (11.6-14.6); RBC Distribution Width SD 44.8 fl (35.1-43.9); Red Blood Count 5.01 M/mm3 (4.6-6.2); White Blood Count 10.2 K/mm3 (4.4-11.0)
--- NOTE | 2023-12-06 21:43 | EX.ED.DYSGE1 ---
HPI History of Present Illness Chief Complaint: General Illness Detail of Chief Complaint: Constellation of viral-like symptoms Informant: patient Onset/Context/Timing Onset: Days (Symptoms started 3 days ago.) Context: Sudden Onset Timing: Continuous and Waxes and wanes Quality: Problems with balance, nausea, diarrhea aches Location: Generalized Current Severity: Mild Maximum Severity: Moderate Worsened by: Patient believes is due to exposure to chemicals at work Relieved by: . Nothing Associated Symptoms Associated Symptoms: Lightheadedness, dry mouth Narrative Narrative: Patient is a 38-year-old male. He is a smoker. He complains of frontal headache. He denies double vision, blurred vision loss of vision. Nuys photophobia. Nuys neck pain, stiffness. He does report ringing's ears. This has been a chronic issue. He denies rhinorrhea, does have mild congestion. Denies sore throat. Does have change in voice, hoarse. He does have a slight cough. He is a smoker. Cough is intermittently productive of sputum. He denies pleuritic chest pain. He does complain of abdominal pain that is bilateral and associated with nausea, vomiting diarrhea. Patient denies dysuria, frequency, urgency or hematuria. Patient does report orthostatic lightheadedness. He also reports problems with his balance and coordination. Prior similar symptoms: No Recent Illness/Hospitalization: No PFSH PFSH Medical History Abdominal pain Depression Schizophrenia Sleep apnea Home Medications fluphenazine HCl 5 mg tablet 5 mg PO BID psychosis 12/06/23 [History Last Taken Unknown] hydroxyzine HCl 50 mg tablet 50 mg PO Q6H PRN PRN anxiety 12/06/23 [History Last Taken Unknown] mirtazapine 30 mg tablet 30 mg PO QHS depressive disorder 12/06/23 [History Last Taken Unknown] prazosin 1 mg capsule 1 mg PO QHS 12/06/23 [History Last Taken Unknown] quetiapine 25 mg tablet 50 mg PO QHS 12/06/23 [History Last Taken Unknown] tizanidine 4 mg tablet 4 mg PO Q8H PRN PRN muscle spasm 12/06/23 [History Last Taken Unknown] trazodone 50 mg tablet 50 mg PO QHS PRN PRN insomnia 12/06/23 [History Last Taken Unknown] Allergy/AdvReac Type Severity Reaction Status Date / Time No Known Allergies Allergy Verified 12/06/23 20:32 Surgical History Hx of facial fracture repair Social History Smoking Status: Current every day smoker tobacco type: cigarettes alcohol intake: current alcohol intake frequency: a few times a month substance use type: marijuana ROS ROS ED Constitutional Constitutional ED: Reports sweats; Denies chills, fever(s), subjective or weight loss Eyes Eyes: Denies blurry vision, change in vision or diplopia ENT ENT ED: Reports rhinorrhea and sore throat; Denies ear pain Cardiovascular Cardiovascular: Denies chest pain, orthopnea, palpitations, paroxysmal nocturnal dyspnea or racing heartbeat Respiratory/Chest Respiratory/Chest: Reports cough, dyspnea and sputum; Denies dyspnea on exertion, orthopnea or paroxysmal nocturnal dyspnea Gastrointestinal Gastrointestinal: Reports abdominal pain, diarrhea, nausea and vomiting; Denies constipation or melena Genitourinary Genitourinary ED: Denies dysuria, hematuria or urinary frequency Musculoskeletal Musculoskeletal: Denies arthralgias, back pain, myalgias or neck pain Integumentary Denies rash Neurologic Neurologic: Reports headache(s) and other Details: Problems with balance and coordination as document in the HPI narrative ; Denies paresthesias or weakness Hematologic/Lymphatic Hematologic/Lymphatic: Reports systems reviewed and no addt'l complaints, except as documented EXAM Physical Exam Const Vital Signs: 12/06/23 20:30 12/06/23 21:01 Temperature 97.8 F Temperature Source Temporal Pulse Rate 89 Respiratory Rate 16 Respiratory Effort Normal Short of Breath Respiratory Pattern Normal Blood Pressure 126/84 H Blood Pressure Mean 98 Pulse Ox 97 Oxygen Delivery Method Room Air Positive well nourished and well developed General Appearance ED: well developed and NAD; Negative for cyanotic, diaphoretic or pallor HEENT Reports TM's clear and dry mucous membranes HEENT Narrative: Head is atraumatic and normocephalic. Ears normal. Nares patent with discharge. Posterior pharynx erythema exudate. Negative for trauma or tenderness Tympanic Membrane ED: Yes TM's clear Mouth ED: Yes dry mucous membranes Mouth: dry mucous membranes Eyes PERRL and EOMs intact bilaterally General Eye ED: Negative for pale conjunctiva or scleral icterus Neck no lymphadenopathy, supple and no JVD Chest Wall inspection of chest normal and palpation of chest normal Resp normal respiratory effort and clear to auscultation bilaterally Cardio regular rate, regular rhythm, S1 normal heart sound, S2 normal heart sound and no murmurs GI normal to inspection, nondistended, normoactive bowel sounds, non-distended and no masses; Negative for non-tender or hepatosplenomegaly Inspection: Negative for abdominal distention Auscultation: hypoactive bowel sounds Palpation: tender LUQ and RUQ Back/Spine no CVA tenderness Extremity normal to inspection Extremity Narrative: There is no clubbing or cyanosis. General Extremety ED: Negative for edema or tenderness General Extremity: Negative for edema Neuro oriented x3, CN's II-XII intact bilaterally and no sensory deficits noted Neuro Narrative: There is no dysmetria. Gait is normal. Tandem gait is normal. There is no clonus or Babinski sign. Sensorium / Orientation: alert Motor Exam: strength 5/5 throughout Psych mental status grossly normal Skin no rashes or lesions noted, no wounds and skin turgor normal General Skin Exam: elasticity normal; Negative for jaundice or pallor MDM MDM MDM Narrative Medical decision making narrative: Suspect patient has a viral illness. Do not believe this is due to exposure to fumes. CBC, BMP was obtained. Patient was she with IV fluids because clinically appears dehydrated. Was given Zofran. He requested antidiarrheal meds. Imodium was ordered. History & Record Review Additional record(s) reviewed:: Prior ED visit (Seen for abdominal pain, fever, and on significant symptoms.) and Prior labs Lab Data Attestation: I reviewed the patient's lab results. Lab results narrative: CBC is normal. Basic metabolic panel is unremarkable. Chloride is slightly elevated 110. Labs: Laboratory Results - last 24 hr 12/06/23 21:30 WBC 10.2 RBC 5.01 Hgb 15.1 Hct 45.7 MCV 91.2 MCH 30.1 MCHC 33.0 RDW Std Deviation 44.8 H RDW Coeff of Yeison 13.4 Plt Count 244 MPV 9.6 Immature Gran % (Auto) 0.300 Neut % (Auto) 63.6 Lymph % (Auto) 24.7 [place] % (Auto) 8.0 Eos % (Auto) 2.5 Baso % (Auto) 0.9 Absolute Neuts (auto) 6.5 Absolute Lymphs (auto) 2.52 Nucleated RBC % 0 Sodium 142 Potassium 3.8 Chloride 110 H Carbon Dioxide 28.0 Anion Gap 4 L BUN 9 Creatinine 1.00 Estim Creat Clear Calc 97.37 Est GFR (MDRD) Af Amer 106 Est GFR (MDRD) Non-Af 88 BUN/Creatinine Ratio 9.0 L Glucose 101 Calcium 8.9 Radiography Chest X-Ray - ED: 2 View and Read by ED Physician (Telemetry reviewed interpreted by me at 2146 as negative for acute process. Cardiac silhouette and size normal. Lung parenchyma is normal. Mediastinum is normal. Osseous structures reveal no acute process.) Diagnostic Testing: Clinical Impression(s) from Imaging Studies Brain CT 12/06/23 21:09 IMPRESSION: No acute intracranial finding. Electronically Signed: Schuyler Grullon MD at 21:57 EDT , Chest X-Ray 12/06/23 21:40 IMPRESSION: No acute pulmonary finding. Electronically Signed: Schuyler Grullon MD at 21:58 EDT , Treatment and Re-Evaluation :: Patient's workup is unremarkable. There is no evidence of intracranial pathology. Will discharge home with appropriate home-going instructions. Patient was given excuse for work. Discharge Plan Triage Chief Complaint: General Illness ED Provider: aDe Zamorano Dx/Rx/DC Orders Clinical Impression: Viral cephalgia, Viral syndrome Prescriptions: No Action quetiapine 25 mg tablet 50 mg PO QHS trazodone 50 mg tablet 50 mg PO QHS PRN PRN (Reason: insomnia) tizanidine 4 mg tablet 4 mg PO Q8H PRN PRN (Reason: muscle spasm) prazosin 1 mg capsule 1 mg PO QHS hydroxyzine HCl 50 mg tablet 50 mg PO Q6H PRN PRN (Reason: anxiety) mirtazapine 30 mg tablet 30 mg PO QHS fluphenazine HCl 5 mg tablet 5 mg PO BID Stand Alone Forms: ED Work / School Excuse Primary Care Provider: LEI KINGSLEY Referrals: LEI KINGSLEY [Other] - 1 Week if not improving Disposition Disposition: Home, Self Care
[2023-12-06] MEDS: Loperamide 2 MG Capsule 4 MG PO (21:58)
[2023-12-06 21:59] LABS: Anion Gap 4 (5-15); BUN 9 mg/dL (7-18); Calcium,Total 8.9 mg/dL (8.5-10.1); Chloride 110 mmol/L (98-107); EST Glomerular Filtration Rate 88 mL/min (>60); Est Glom Filt Rate - Afr Amer 106 mL/min (>60); Estimated Creatinine Clearance 97.37 ml/min; Glucose 101 mg/dL (74-106); Potassium 3.8 mmol/L (3.5-5.1); Sodium Level 142 mmol/L (136-145)
[2023-12-06 23:00] VITALS: BP 122/63; PULSE 68; RESP 16; O2SAT 98
[2023-12-06 23:06] VITALS: BP 122/83; PULSE 68; RESP 6; TEMP 36.9; O2SAT 96
== END 2023-12-06 23:07 | disposition home or self-care (01) ==
PROVIDERS: Emergency Provider Emergency Medicine; Visit Provider Emergency Medicine
DX: B34.9 Viral infection, unspecified (principal); F17.210 Nicotine dependence, cigarettes, uncomplicated; R51.9 Headache, unspecified; Z79.899 Other long term (current) drug therapy
CPT/HCPCS: 70450; 71046; 80048; 85025; 87631; 96361; 96374; 99284; J7030; A4216; J2405

== ENCOUNTER 2023-12-08 11:55 | Emergency (ER) | payer MEDICAID, SELFPAY ==
[2023-12-08 11:56] VITALS: BP 129/85; PULSE 102; RESP 16; TEMP 36.3; O2SAT 97; BMI 20.9
== END 2023-12-08 13:35 | disposition left against medical advice (07) ==
LOC: ED 13:42
DX: Z53.21 Procedure and treatment not carried out due to patient leaving prior to being seen by health care provider (principal)

== ENCOUNTER 2024-11-15 14:48 | Emergency (ER) | payer SELFPAY ==
[2024-11-15 14:49] VITALS: BP 125/89; PULSE 83; RESP 16; TEMP 36.2; O2SAT 97; BMI 23.8
[2024-11-15 16:11] LABS: Absolute Lymphocyte Count 3.04 X10^3/uL (0.83-4.51); Absolute Neutrophil Count 7.3 X10^3/uL (2.0-7.7); Basophil# 0.11 X10^3/uL; Basophil% 0.9 % (0-1); Eosinophil# 0.35 X10^3/uL; Hematocrit 45.9 % (40-54); Hemoglobin 15.3 g/dL (13.0-16.5); Lymphocyte # 3.04 X10^3/ul (0.83-4.51); Lymphocyte % 25.7 % (19-41); Mean Corp Hgb Conc 33.3 g/dL (32-36); Mean Corpuscular Hgb 30.4 pg (27.0-32.0); Mean Corpuscular Volume 91.3 fL (80-94); Mean Platelet Vol. 9.6 fl (6.2-12.0); Monocyte% 8.5 % (0-10); NRBC Flagged by Analyzer 0 % (0-5); Neutrophil # 7.28 X10^3/uL (2.7-7.7); Neutrophil % 61.5 % (47-70); Platelet Count 294 K/mm3 (150-450); RBC Distribution Width CV 13.2 % (11.6-14.6); RBC Distribution Width SD 44.7 fl (35.1-43.9); Red Blood Count 5.03 M/mm3 (4.6-6.2); White Blood Count 11.8 K/mm3 (4.4-11.0)
[2024-11-15 16:24] LABS: AST(SGOT) 22 U/L (15-37); Alanine Aminotransfer ALT/SGPT 35 U/L (16-61); Alkaline Phosphatase 103 U/L (45-117); Anion Gap 5 (5-15); BUN 12 mg/dL (7-18); BUN/Creat Ratio 14.2 RATIO (10-20); Calcium,Total 9.1 mg/dL (8.5-10.1); Chloride 111 mmol/L (98-107); Creatinine, Serum 0.85 mg/dL (0.70-1.30); EST Glomerular Filtration Rate 106 mL/min (>60); Est Glom Filt Rate - Afr Amer 128 mL/min (>60); Estimated Creatinine Clearance 125.53 ml/min; Globulin 4.2 g/dL (2.2-4.2); Glucose 85 mg/dL (74-106); Protein, Total 8.2 g/dL (6.4-8.2); Sodium Level 140 mmol/L (136-145)
[2024-11-15 16:57] VITALS: BP 120/90; PULSE 98; RESP 18; O2SAT 97
[2024-11-15 17:02] VITALS: BP 131/91; BP 133/89; BP 134/88; PULSE 72; PULSE 74
--- NOTE | 2024-11-15 17:02 | CT_ITS ---
PROCEDURE: ABDOMEN/PELVIS W IV CONT ONLY REASON FOR EXAM: Bright red blood per rectum; history of hemorrhoids. TECHNIQUE: Abdomen and pelvis CT with intravenous contrast. IV CONTRAST: Not reported. COMPARISON: None. FINDINGS: Lung bases: Clear Liver: Right hepatic lobe subcentimeter hypodense lesion that is too small to characterize but statistically likely benign. Gallbladder: Unremarkable. Spleen: Unremarkable. Pancreas: Unremarkable. Adrenals: Unremarkable. Kidneys: Right kidney simple cyst. Additional bilateral subcentimeter hypodense lesions that are too small to characterize. No hydroureteronephrosis. Bladder: Unremarkable. Reproductive Organs: Prostatic calcifications. Bowel: Unremarkable. Appendix: Normal. Lymph nodes: No suspicious lymph node enlargement. Vasculature: Major vascular structures are unremarkable. Peritoneum / Retroperitoneum: No ascites. No free air. Bones: Degenerative changes of the spine most pronounced at L5-S1. CT/Abdomen/Pelvis W IV Cont ONLY IMPRESSION: No acute abnormalities of the abdomen or pelvis. One or more dose reduction techniques were used (e.g., Automated exposure contr ol, adjustment of the mA and/or kV according to patient size, use of iterative reconstruction technique). Reading Location: [place] [id number]
--- NOTE | 2024-11-15 17:02 | EDS_ITS ---
HPI HPI - GI History of Present Illness Chief Complaint: GI Bleed Narrative Narrative: 39-year-old male past medical history of previous hemorrhoids presents with rectal bleeding that began this afternoon, few hours ago. He states he got home from work, and had a bowel movement which showed blood in the toilet/bright red blood per rectum. He states he has been constipated over the last few days. He states he also had a time where he had a hemorrhoid blowout in his words. Had rectal bleeding previously. States he was seen in the emergency department and was told that should he have continued bleeding that he may need to have gastroenterology see him. He complains of bilateral lower abdominal pain as well. No history of liver disease, denies any other bleeding diathesis. No nausea or vomiting, no fevers or chills or other symptoms. PFSH PFSH Medical History Degenerative disc disease Depression Schizophrenia Sleep apnea Abdominal pain Home Medications ?Medication ?Instructions ?Recorded ?Last Taken ?Type fluphenazine HCl 5 mg tablet 5 mg PO BID psychosis 09/18 Unknown History hydroxyzine HCl 50 mg tablet 50 mg PO Q6H PRN PRN anxi ety 12/06/23 Unknown History mirtazapine 30 mg tablet 30 mg PO QHS depressive diso rder 12/06/23 Unknown History ondansetron 4 mg disintegrating 4 mg PO Q8H PRN PRN Na usea #10 tabs 12/06/23 Unknown Rx tablet prazosin 1 mg capsule 1 mg PO QHS 12/06/23 Unknown History quetiapine 25 mg tablet 50 mg PO QHS 12/06/23 Unknow n History tizanidine 4 mg tablet 4 mg PO Q8H PRN PRN muscle s pasm 12/06/23 Unknown History trazodone 50 mg tablet 50 mg PO QHS PRN PRN insomni a 12/06/23 Unknown History hydrocortisone 2.5 % topical cream 1 applic NM BID #30 grams 11/15/24 Unknown Rx with perineal applicator (Anusol-HC) Allergy/AdvReac Type Severity Reaction Status Date / Time No Known Allergies Allergy Verified 12/08/23 11:56 Surgical History Hx of facial fracture repair Social History Smoking Status: Current every day smoker tobacco type: cigarettes alcohol intake: current alcohol intake frequency: a few times a month substance use type: marijuana ROS ROS ED ROS Narrative Review of systems positive for rectal bleeding. No lightheadedness or dizziness. No chest pain or shortness of breath, no fevers or chills, no nausea or vomiting, denies other symptoms. Does take ibuprofen, last taken approximately 4 days ago. Also takes Tylenol 3 which she took today. EXAM Physical Exam Narrative Exam Narrative: Afebrile. Vital signs noted. Nontoxic-appearing. No skin pallor noted. No scleral icterus. Cardiovascular examination regular rate and rhythm. Lungs clear to auscultation bilaterally. Abdomen is soft with minimal tenderness to p alpation in the bilateral lower quadrants. No guarding or rebound. Positive bowel sounds. Neurological examination is nonfocal and nonlateralizing. Chaperoned rectal examination performed. On the chaperoned rectal examination, there is external hemorrhoid with evidence of excoriation and prior bleeding. Nonthrombosed. Const Vital Signs: 11/15/24 14:49 11/15/24 16:57 11/15/24 17:02 Temperature 97.1 F L Temperature Source Temporal Pulse Rate 83 98 Pulse Rate [Lying] 72 Pulse Rate [Sitting (for 1 minute prior to obtaining)] 74 Respiratory Rate 16 18 Blood Pressure 125/89 H 120/90 H Blood Pressure [Lying] 131/91 H Blood Pressure [Sitting (for 1 minute prior to obtaining)] 134/88 H Blood Pressure [Standing (for 1 minute prior to obtaining)] 133/89 H Blood Pressure Mean 101 100 Blood Pressure Mean [Lying] 104 Blood Pressure Mean [Sitting (for 1 minute prior to obtaining)] 103 Blood Pressure Mean [Standing (for 1 minute prior to obtaining)] 103 Pulse Ox 97 97 Oxygen Delivery Method Room Air Room Air 11/15/24 18:00 Temperature 97.9 F Temperature Source Oral Pulse Rate 77 Pulse Rate [Lying] Pulse Rate [Sitting (for 1 minute prior to obtaining)] Respiratory Rate 18 Blood Pressure 129/79 H Blood Pressure [Lying] Blood Pressure [Sitting (for 1 minute prior to obtaining)] Blood Pressure [Standing (for 1 minute prior to obtaining)] Blood Pressure Mean 95 Blood Pressure Mean [Lying] Blood Pressure Mean [Sitting (for 1 minute prior to obtaining)] Blood Pressure Mean [Standing (for 1 minute prior to obtaining)] Pulse Ox 98 Oxygen Delivery Method Room Air MDM MDM MDM Narrative Medical decision making narrative: Differential diagnosis includes but not limited to hemorrhoidal rectal bleeding versus internal hemorrhoid versus external hemorrhoid versus diverticular bleeding versus AV malformation. Protocol labs were obtained and he has normal hemoglobin on review of 15.3 with hematocrit 45.9. Platelet count normal at 294. WBC count slightly elevated 11.8 which I think is nonspecific. Electrolyte panel shows BUN of 12 with creatinine 0.85. I have low suspicion for upper GI bleeding that is brisk. AST and ALT are normal with normal alk phos. Do feel CT imaging needs to be obtained for his lower abdominal pain as well to look for diverticulitis. Additionally orthostatics were added. On the chaperoned rectal examination, there is evidence of external hemorrhoid that is excoriated and had prior bleeding. Patient did have a bowel movement in the emergency department and stated that the stool is normal color, but there was bright red blood. Last time he was treated with a cream. As long as the CT does not show anything surgical or acute I feel he can be discharged to follow- up with gastroenterology. I did review the radiology report of the CT of the abdomen pelvis and there is no acute intra-abdominal process. Orthostatics are negative. He will be written for Anusol HC to apply at least twice a day. Return instructions to the emergency department were reviewed. Disposition is discharged home in stable condition. Lab Data Attestation: I reviewed the patient's lab results. Labs: Laboratory Results - last 24 hr 11/15/24 15:55 WBC 11.8 H RBC 5.03 Hgb 15.3 Hct 45.9 MCV 91.3 MCH 30.4 MCHC 33.3 RDW Std Deviation 44.7 H RDW Coeff of Yeison 13.2 Plt Count 294 MPV 9.6 Immature Gran % (Auto) 0.400 Neut % (Auto) 61.5 Lymph % (Auto) 25.7 [place] % (Auto) 8.5 Eos % (Auto) 3.0 Baso % (Auto) 0.9 Absolute Neuts (auto) 7.3 Absolute Lymphs (auto) 3.04 Nucleated RBC % 0 Sodium 140 Potassium 4.0 Chloride 111 H Carbon Dioxide 24.0 Anion Gap 5 BUN 12 Creatinine 0.85 Estim Creat Clear Calc 125.53 Est GFR (MDRD) Af Amer 128 Est GFR (MDRD) Non-Af 106 BUN/Creatinine Ratio 14.2 Glucose 85 Calcium 9.1 Total Bilirubin 0.40 AST 22 ALT 35 Alkaline Phosphatase 103 Total Protein 8.2 Albumin 4.0 Globulin 4.2 Albumin/Globulin Ratio 1.0 Radiography Diagnostic Testing: Clinical Impression(s) from Imaging Studies Abdomen/Pelvis CT 11/15/24 17:02 IMPRESSION: No acute abnormalities of the abdomen or pelvis. One or more dose reduction techniques were used (e.g., Automated exposure control, adjustment of the mA and/or kV according to patient size, use of iterative reconstruction technique). Reading Location: [place] [id number] Discharge Plan Triage Chief Complaint: GI Bleed ED Provider: Joshua Holland Dx/Rx/DC Orders Clinical Impression: External hemorrhoid, bleeding, Abdominal pain Instructions: ED Hemorrhoids, ED Abdominal Pain Unkn Cause Male... Prescriptions: New hydrocortisone [Anusol-HC] 2.5 % cream with perineal applicator 1 applic NM BID Qty: 30 0RF No Action quetiapine 25 mg tablet 50 mg PO QHS trazodone 50 mg tablet 50 mg PO QHS PRN PRN (Reason: insomnia) tizanidine 4 mg tablet 4 mg PO Q8H PRN PRN (Reason: muscle spasm) prazosin 1 mg capsule 1 mg PO QHS hydroxyzine HCl 50 mg tablet 50 mg PO Q6H PRN PRN (Reason: anxiety) mirtazapine 30 mg tablet 30 mg PO QHS fluphenazine HCl 5 mg tablet 5 mg PO BID ondansetron [ondansetron] 4 mg tablet,disintegrating 4 mg PO Q8H PRN PRN (Reason: Nausea) Qty: 10 0RF Stand Alone Forms: ED Work / School Excuse Primary Care Provider: Care Physician,No Primary Referrals: Victorino Alfaro MD [Med Staff - Active Staff] - 1 Week if not improving Mushtaq Simental DO [Med Staff - Active Staff] - 3-5 Days if not improving NOT,DEFINED [Non-Staff] - Activity Restrictions/Additional Instructions: Return with increased rectal bleeding, new or worsening symptoms. Follow-up with gastroenterology. You may need a hemorrhoidal excision by general surgery in the future. Print Language: Mongolian Disposition Disposition: Home, Self Care
[2024-11-15 18:00] VITALS: BP 129/79; PULSE 77; RESP 18; TEMP 36.6; O2SAT 98
== END 2024-11-15 18:55 | disposition home or self-care (01) ==
PROVIDERS: Emergency Provider Emergency Medicine; Visit Provider Emergency Medicine
DX: K64.4 Residual hemorrhoidal skin tags (principal); R10.9 Unspecified abdominal pain; F17.210 Nicotine dependence, cigarettes, uncomplicated
CPT/HCPCS: 74177; 80053; 85025; 99284; Q9967; A4216